=== PATIENT | male | born 1965 | race Caucasian/White ===

== ENCOUNTER 2017-05-11 13:25 | Inpatient (IN) | payer OTHER, MEDICARE ==
[2017-05-11 14:34] LABS: ADD MAN DIFF? NO
[2017-05-11 14:37] LABS: BASO # 0.1 x10^3/uL (0.0-0.2); BASO % 1 % (0-3); EOS # 0.8 x10^3/uL (0.0-0.7); EOS % 6 % (0-3); HEMATOCRIT 33.5 % (39.0-53.0); HEMOGLOBIN 11.1 g/dL (13.0-17.5); LYMPH # 2.7 x10^3/uL (1.0-4.8); LYMPH % 20 % (24-48); MEAN CORPUSCULAR HEMOGLOBIN 29 pg (25-35); MEAN CORPUSCULAR HGB CONC 33 g/dL (31-37); MEAN CORPUSCULAR VOLUME 88 fL (79-100); MONO # 0.7 x10^3/uL (0.0-1.1); MONO % 5 % (0-9); NEUT # 9.4 x10^3uL (1.8-7.7); NEUT % 68 % (31-73); PLATELET COUNT 199 x10^3/uL (140-400); RED BLOOD COUNT 3.83 x10^6/uL (4.30-5.70); RED CELL DISTRIBUTION WIDTH 16.7 % (11.5-14.5); WHITE BLOOD COUNT 13.8 x10^3/uL (4.0-11.0)
[2017-05-11 14:53] LABS: PROTHROMBIN TIME PATIENT 12.6 SEC (11.7-14.0)
[2017-05-11 15:01] LABS: THYROID STIM HORMONE (TSH) 2.349 uIU/mL (0.358-3.74)
[2017-05-11 15:05] LABS: TROPONINI 0.152 ng/mL (0.000-0.055)
[2017-05-11 15:06] LABS: ANION GAP 10 (6-14); BLOOD UREA NITROGEN 37 mg/dL (8-26); BUN/CREATININE RATIO 22 (6-20); CALCIUM 9.1 mg/dL (8.5-10.1); CARBON DIOXIDE 30 mmol/L (21-32); CHLORIDE 104 mmol/L (98-107); CREATININE 1.7 mg/dL (0.7-1.3); GFR 42.9; GLUCOSE 92 mg/dL (70-99); POTASSIUM 3.2 mmol/L (3.5-5.1); SODIUM 144 mmol/L (136-145)
[2017-05-11 15:11] LABS: ALBUMIN 2.7 g/dL (3.4-5.0); ALBUMIN/GLOBULIN RATIO 0.8 (1.0-1.7); ALK PHOS 103 U/L (46-116); ALT (SGPT) 33 U/L (16-63); AST (SGOT) 23 U/L (15-37); MAGNESIUM 1.9 mg/dL (1.8-2.4); TOTAL BILIRUBIN 0.7 mg/dL (0.2-1.0)
[2017-05-11 15:19] LABS: CKMB INDEX 0.4 % (0-4); CKMB MASS 2.3 ng/mL (0.0-3.6); CREATINE KINASE 561 U/L (39-308)
[2017-05-11 15:19] LABS: NT-PRO BNP 6798 pg/mL (0-124)
[2017-05-11] MEDS: FUROSEMIDE 40 MG/4 ML VIAL. IVP (17:53)
[2017-05-11 18:41] LABS: TROPONINI 0.145 ng/mL (0.000-0.055)
[2017-05-11 20:58] LABS: POC GLUCOSE 296 mg/dL (70-99)
[2017-05-11] MEDS: NON FORMULARY ITEM (Icosapent Ethyl (Vascepa) 1 GM) PO (21:00)
[2017-05-11] MEDS ORDERED: PROMETHAZINE 12.5 MG TABLET. PO (21:15)
[2017-05-11] MEDS: HEPARIN for IV BOLUS 10,000 UNIT/10 ML VIAL. IV (21:31)
[2017-05-11] MEDS: HEPARIN 25,000UTS/500ML PREMIX 500 ML IV (21:35)
[2017-05-11] MEDS: AMIODARONE 150 MG in IV DEXTROSE 5% 100 ML IV (21:36)
[2017-05-11] MEDS: SILDENAFIL CITRATE 20 MG TABLET. PO (21:40)
[2017-05-11] MEDS: POTASSIUM CHLORIDE 20 MEQ TABLET.ER. PO ×2 (21:41→21:42)
[2017-05-11] MEDS: METOPROLOL SUCC 24HR ER 25 MG TAB.ER.24H. PO (21:41)
[2017-05-11] MEDS: levETIRAcetam 500 MG TABLET PO (21:43)
[2017-05-11] MEDS: TOPIRAMATE 100 MG TABLET. PO (21:43)
[2017-05-11] MEDS: MIRTAZAPINE 15 MG TABLET PO (21:43)
[2017-05-11] MEDS: PREGABALIN 50 MG CAPSULE PO (21:43)
[2017-05-11] MEDS: HYDROcodone/APAP 5/325MG 1 TAB TABLET PO (21:43)
[2017-05-11] MEDS: AMIODARONE 900 MG in IV DEXTROSE 5% 500 ML IV (21:45)
[2017-05-11] MEDS: INSULIN DETEMIR 300 UNITS/3 ML INSULN.PEN. SQ (21:45)
[2017-05-11 22:06] LABS: TROPONINI 0.132 ng/mL (0.000-0.055)
[2017-05-12 08:02] LABS: POC GLUCOSE 194 mg/dL (70-99)
[2017-05-12 08:13] LABS: ALBUMIN 2.4 g/dL (3.4-5.0); ALBUMIN/GLOBULIN RATIO 0.7 (1.0-1.7); ALK PHOS 107 U/L (46-116); ALT (SGPT) 35 U/L (16-63); ANION GAP 9 (6-14); AST (SGOT) 25 U/L (15-37); BLOOD UREA NITROGEN 39 mg/dL (8-26); BUN/CREATININE RATIO 21 (6-20); CALCIUM 8.7 mg/dL (8.5-10.1); CARBON DIOXIDE 30 mmol/L (21-32); CHLORIDE 103 mmol/L (98-107); CREATININE 1.9 mg/dL (0.7-1.3); GFR 37.7; GLUCOSE 170 mg/dL (70-99); POTASSIUM 3.2 mmol/L (3.5-5.1); PROTHROMBIN TIME PATIENT 12.6 SEC (11.7-14.0); SODIUM 142 mmol/L (136-145); TOTAL BILIRUBIN 0.4 mg/dL (0.2-1.0); TOTAL PROTEIN 5.7 g/dL (6.4-8.2)
[2017-05-12 08:15] LABS: UNFRACTIONATED HEPARIN TESTING 0.14 IU/mL (0.30-0.70)
[2017-05-12 08:28] LABS: FREE T4 0.97 ng/dL (0.76-1.46)
[2017-05-12] MEDS ORDERED: ATORVASTATIN CALCIUM 10 MG TABLET. PO (09:00)
[2017-05-12] MEDS: NON FORMULARY ITEM (Icosapent Ethyl (Vascepa) 1 GM) PO ×2 (09:00→21:00)
[2017-05-12] MEDS ORDERED: PNEUMOCOCCAL VAX SCREEN BY RX. MC (09:00)
[2017-05-12] MEDS: POTASSIUM CHLORIDE 20 MEQ TABLET.ER. PO ×2 (09:20→17:07)
[2017-05-12] MEDS: ASPIRIN ENTERIC COATED 81 MG TABLET.DR. PO (09:20)
[2017-05-12] MEDS: EZETIMIBE 10 MG TABLET. PO (09:20)
[2017-05-12] MEDS: levETIRAcetam 500 MG TABLET PO ×2 (09:20→20:49)
[2017-05-12] MEDS: DULoxetine HCL 30 MG CAPSULE.DR PO (09:20)
[2017-05-12] MEDS: CYANOCOBALAMIN (VITAMIN B-12) 1,000 MCG TABLET. PO (09:20)
[2017-05-12] MEDS: TOPIRAMATE 100 MG TABLET. PO ×2 (09:20→20:49)
[2017-05-12] MEDS: CHOLECALCIFEROL (VITAMIN D3) 1,000 UNIT TABLET PO (09:20)
[2017-05-12] MEDS: PANTOPRAZOLE 40 MG TABLET.DR. PO (09:21)
[2017-05-12] MEDS: PREGABALIN 50 MG CAPSULE PO ×2 (09:21→20:48)
[2017-05-12] MEDS: HYDROcodone/APAP 5/325MG 1 TAB TABLET PO ×2 (09:21→20:49)
[2017-05-12] MEDS: SILDENAFIL CITRATE 20 MG TABLET. PO ×3 (09:23→20:50)
[2017-05-12] MEDS: FUROSEMIDE 40 MG/4 ML VIAL. IVP (17:07)
[2017-05-12] MEDS: RIVAROXABAN 10 MG TABLET. PO (17:18)
[2017-05-12 18:15] LABS: HEMOGLOBIN A1C 9.5 % (4.8-5.6)
[2017-05-12] MEDS: AMIODARONE HCL 200 MG TABLET. PO (19:48)
[2017-05-12] MEDS: MIRTAZAPINE 15 MG TABLET PO (20:47)
[2017-05-12] MEDS: ATORVASTATIN CALCIUM 10 MG TABLET. PO (20:47)
[2017-05-12] MEDS: METOPROLOL SUCC 24HR ER 25 MG TAB.ER.24H. PO (20:49)
[2017-05-12] MEDS: INSULIN DETEMIR 300 UNITS/3 ML INSULN.PEN. SQ (20:58)
[2017-05-13] MEDS: ANTI-COAG MONITOR BY PHARMACY. MC (07:42)
[2017-05-13 07:59] LABS: POC GLUCOSE 258 mg/dL (70-99)
[2017-05-13] MEDS: CYANOCOBALAMIN (VITAMIN B-12) 1,000 MCG TABLET. PO (09:10)
[2017-05-13] MEDS: PANTOPRAZOLE 40 MG TABLET.DR. PO (09:11)
[2017-05-13] MEDS: POTASSIUM CHLORIDE 20 MEQ TABLET.ER. PO ×2 (09:11→17:14)
[2017-05-13] MEDS: DULoxetine HCL 30 MG CAPSULE.DR PO (09:11)
[2017-05-13] MEDS: HYDROcodone/APAP 5/325MG 1 TAB TABLET PO ×2 (09:12→20:44)
[2017-05-13] MEDS: ASPIRIN ENTERIC COATED 81 MG TABLET.DR. PO (09:14)
[2017-05-13] MEDS: CHOLECALCIFEROL (VITAMIN D3) 1,000 UNIT TABLET PO (09:14)
[2017-05-13] MEDS: levETIRAcetam 500 MG TABLET PO ×2 (09:14→20:42)
[2017-05-13] MEDS: SILDENAFIL CITRATE 20 MG TABLET. PO ×3 (09:14→20:43)
[2017-05-13] MEDS: EZETIMIBE 10 MG TABLET. PO (09:14)
[2017-05-13] MEDS: TOPIRAMATE 100 MG TABLET. PO ×2 (09:15→20:42)
[2017-05-13] MEDS: FUROSEMIDE 40 MG/4 ML VIAL. IVP ×2 (09:15→15:35)
[2017-05-13] MEDS: AMIODARONE HCL 200 MG TABLET. PO (09:15)
[2017-05-13] MEDS: PREGABALIN 50 MG CAPSULE PO ×2 (10:19→20:42)
[2017-05-13] MEDS: INSULIN DETEMIR 300 UNITS/3 ML INSULN.PEN. SQ ×2 (10:25→20:50)
[2017-05-13 10:26] LABS: POC GLUCOSE 101 mg/dL (70-99)
[2017-05-13 16:02] LABS: POC GLUCOSE 106 mg/dL (70-99)
[2017-05-13] MEDS: RIVAROXABAN 10 MG TABLET. PO (17:14)
[2017-05-13 18:25] LABS: POC GLUCOSE 240 mg/dL (70-99)
[2017-05-13] MEDS: ATORVASTATIN CALCIUM 10 MG TABLET. PO (20:42)
[2017-05-13] MEDS: MIRTAZAPINE 15 MG TABLET PO (20:43)
[2017-05-13] MEDS: METOPROLOL SUCC 24HR ER 25 MG TAB.ER.24H. PO (20:43)
[2017-05-13 20:51] LABS: POC GLUCOSE 326 mg/dL (70-99)
[2017-05-14] MEDS: AMIODARONE HCL 200 MG TABLET. PO ×3 (01:09→21:46)
[2017-05-14 08:11] LABS: POC GLUCOSE 125 mg/dL (70-99)
[2017-05-14] MEDS: PREGABALIN 50 MG CAPSULE PO ×2 (08:26→21:44)
[2017-05-14] MEDS: ASPIRIN ENTERIC COATED 81 MG TABLET.DR. PO (08:26)
[2017-05-14] MEDS: SILDENAFIL CITRATE 20 MG TABLET. PO ×3 (08:26→21:46)
[2017-05-14] MEDS: CHOLECALCIFEROL (VITAMIN D3) 1,000 UNIT TABLET PO (08:27)
[2017-05-14] MEDS: HYDROcodone/APAP 5/325MG 1 TAB TABLET PO ×2 (08:27→21:45)
[2017-05-14] MEDS: EZETIMIBE 10 MG TABLET. PO (08:27)
[2017-05-14] MEDS: CYANOCOBALAMIN (VITAMIN B-12) 1,000 MCG TABLET. PO (08:27)
[2017-05-14] MEDS: DULoxetine HCL 30 MG CAPSULE.DR PO (08:27)
[2017-05-14] MEDS: TOPIRAMATE 100 MG TABLET. PO ×2 (08:27→21:47)
[2017-05-14] MEDS: levETIRAcetam 500 MG TABLET PO ×2 (08:28→21:46)
[2017-05-14] MEDS: POTASSIUM CHLORIDE 20 MEQ TABLET.ER. PO (08:29)
[2017-05-14] MEDS: FUROSEMIDE 40 MG/4 ML VIAL. IVP (08:29)
[2017-05-14] MEDS: ANTI-COAG MONITOR BY PHARMACY. MC (08:29)
[2017-05-14] MEDS: PANTOPRAZOLE 40 MG TABLET.DR. PO (08:30)
[2017-05-14 09:38] LABS: ANION GAP 7 (6-14); BLOOD UREA NITROGEN 44 mg/dL (8-26); CALCIUM 9.1 mg/dL (8.5-10.1); CARBON DIOXIDE 31 mmol/L (21-32); CHLORIDE 110 mmol/L (98-107); CREATININE 2.5 mg/dL (0.7-1.3); GFR 27.5; GLUCOSE 136 mg/dL (70-99); POTASSIUM 5.1 mmol/L (3.5-5.1); SODIUM 148 mmol/L (136-145)
[2017-05-14] MEDS: RIVAROXABAN 15 MG TABLET. PO (17:44)
[2017-05-14] MEDS: ATORVASTATIN CALCIUM 10 MG TABLET. PO (21:44)
[2017-05-14] MEDS: METOPROLOL SUCC 24HR ER 25 MG TAB.ER.24H. PO (21:47)
[2017-05-14] MEDS: MIRTAZAPINE 15 MG TABLET PO (21:47)
[2017-05-14] MEDS: INSULIN DETEMIR 300 UNITS/3 ML INSULN.PEN. SQ (22:01)
[2017-05-14 22:04] LABS: POC GLUCOSE 280 mg/dL (70-99)
[2017-05-15 06:05] LABS: ANION GAP 8 (6-14); BLOOD UREA NITROGEN 42 mg/dL (8-26); CALCIUM 8.2 mg/dL (8.5-10.1); CARBON DIOXIDE 30 mmol/L (21-32); CHLORIDE 111 mmol/L (98-107); CREATININE 2.6 mg/dL (0.7-1.3); GFR 26.3; GLUCOSE 97 mg/dL (70-99); POTASSIUM 4.5 mmol/L (3.5-5.1); SODIUM 149 mmol/L (136-145)
[2017-05-15] MEDS: PREGABALIN 50 MG CAPSULE PO (08:14)
[2017-05-15] MEDS: CYANOCOBALAMIN (VITAMIN B-12) 1,000 MCG TABLET. PO (08:15)
[2017-05-15] MEDS: DULoxetine HCL 30 MG CAPSULE.DR PO (08:15)
[2017-05-15] MEDS: HYDROcodone/APAP 5/325MG 1 TAB TABLET PO (08:15)
[2017-05-15] MEDS: EZETIMIBE 10 MG TABLET. PO (08:15)
[2017-05-15] MEDS: AMIODARONE HCL 200 MG TABLET. PO (08:15)
[2017-05-15] MEDS: TOPIRAMATE 100 MG TABLET. PO (08:16)
[2017-05-15] MEDS: SILDENAFIL CITRATE 20 MG TABLET. PO (08:16)
[2017-05-15] MEDS: CHOLECALCIFEROL (VITAMIN D3) 1,000 UNIT TABLET PO (08:16)
[2017-05-15] MEDS: PANTOPRAZOLE 40 MG TABLET.DR. PO (08:16)
[2017-05-15] MEDS: ASPIRIN ENTERIC COATED 81 MG TABLET.DR. PO (08:16)
[2017-05-15] MEDS: levETIRAcetam 500 MG TABLET PO (08:16)
[2017-05-15] MEDS: PNEUMOC CONJ VACC 23-VALENT 0.5 ML VIAL. VAX IM (08:28)
== END 2017-05-15 14:00 | disposition home or self-care (01) | DRG 682 ==
LOC: ER 13:25 → ED HOLD 15:43 → 2 NORTH 19:08
PROVIDERS: Family Medicine
DX: N17.9 Acute kidney failure, unspecified (principal); I50.23 Acute on chronic systolic (congestive) heart failure; E44.0 Moderate protein-calorie malnutrition; I42.9 Cardiomyopathy, unspecified; I48.91 Unspecified atrial fibrillation; E11.65 Type 2 diabetes mellitus with hyperglycemia; I48.92 Unspecified atrial flutter; I11.0 Hypertensive heart disease with heart failure; G40.909 Epilepsy, unspecified, not intractable, without status epilepticus; F12.90 Cannabis use, unspecified, uncomplicated; J44.9 Chronic obstructive pulmonary disease, unspecified; F32.9 Major depressive disorder, single episode, unspecified; G43.909 Migraine, unspecified, not intractable, without status migrainosus; F17.200 Nicotine dependence, unspecified, uncomplicated; G89.29 Other chronic pain; T50.2X5A Adverse effect of carbonic-anhydrase inhibitors, benzothiadiazides and other diuretics, initial encounter; I25.10 Atherosclerotic heart disease of native coronary artery without angina pectoris; Z79.4 Long term (current) use of insulin; I25.2 Old myocardial infarction; Z23 Encounter for immunization; Z68.26 Body mass index [BMI] 26.0-26.9, adult
CPT/HCPCS: 36415; 71045; 80048; 80053; 82553; 82962; 83036; 83735; 83880; 84439; 84443; 84481; 84484; 85025; 85520; 85610; 90732; 93005; 93306; 96374; 99285; 99285-25; J0282; J1644; J1815; J1940